=== PATIENT | female | born 1960 | race Hispanic/Latino ===

== ENCOUNTER 2018-01-05 10:49 | Emergency (ER) | payer OTHER ==
[2018-01-05 11:09] VITALS: RESP 18; TEMP 98
[2018-01-05] MEDS ORDERED: Acetaminophen-Codeine 300/30 mg Tab PO STA (11:36)
[2018-01-05] MEDS ORDERED: Amoxicillin-Clav 875-125 mg Tab PO STA (11:36)
[2018-01-05] MEDS ORDERED: Acetaminophen-Codeine 300/30 mg Tab PO ONE (11:47)
[2018-01-05] MEDS ORDERED: Amoxicillin-Clav 875-125 mg Tab PO ONE (11:47)
--- NOTE | 2018-01-05 12:08 | C.PDOC ---
History Of Present Illness 57 year old female presents to ED with complaints of left lower toothache for few days. Patient states she has been having tooth problems for some tiem, and has couple extractions and seeing her dentist; she needs dentures. She has an appointment with oral surgeon in 4 days. Time Seen by Provider: 01/05/18 11:29 Chief Complaint (Nursing): Dental Pain History Per: Patient History/Exam Limitations: no limitations Onset/Duration Of Symptoms: Days Current Symptoms Are (Timing): Still Present Past Medical History Reviewed: Historical Data, Nursing Documentation, Vital Signs Vital Signs: Last Vital Signs Temp 98 F 01/05/18 12:17 Pulse 80 01/05/18 12:17 Resp 18 01/05/18 12:17 BP 133/59 L 01/05/18 12:17 Pulse Ox 96 01/05/18 12:17 - Medical History PMH: No Chronic Diseases, Fractures (R wrist and R forearm ORIF) - [facility] Procedures APPLICATION OF SPLINT (05/29/14) Family History: States: Unknown Family Hx - Social History Hx Tobacco Use: Yes Hx Alcohol Use: No Hx Substance Use: No - Immunization History Hx Tetanus Toxoid Vaccination: Yes Hx Influenza Vaccination: Yes Hx Pneumococcal Vaccination: Yes Review Of Systems ENT: Positive for: Other (toothache) Cardiovascular: Negative for: Chest Pain Respiratory: Negative for: Cough Gastrointestinal: Negative for: Abdominal Pain Neurological: Negative for: Headache Physical Exam - Physical Exam Appears: Non-toxic, No Acute Distress Skin: Warm, Dry Head: Atraumatic, Normacephalic Eye(s): bilateral: Normal Inspection, EOMI Ear(s): Bilateral: Normal (no erythema) Nose: Normal, No Flaring, No Discharge Oral Mucosa: Moist Tongue: Normal Appearing, No Swelling Lips: Normal Appearing, No Swelling Teeth: Caries (mulitple), Edentulous (to upper mouth), Other (few teeth to lower mouth, left cuspid with large cavity and mild gingival swelling ) Gingiva: No Erythema, No Ulceration, No Bleeding, No Abscess Throat: Normal, No Erythema, No Exudate, No Drooling Neck: Normal ROM, Supple Chest: Symmetrical Cardiovascular: Rhythm Regular, No Murmur Respiratory: Normal Breath Sounds, No Wheezing Extremity: Bilateral: Atraumatic ED Course And Treatment O2 Sat by Pulse Oximetry: 99 Medical Decision Making Medical Decision Making: Patient with multiple dental caries and toothache. No palpable dental abscess. Patient has follow up with dentist. Rx given. Disposition Counseled Patient/Family Regarding: Diagnosis, Need For Followup, Rx Given - Disposition Disposition: HOME/ ROUTINE Disposition Time: 12:07 Condition: STABLE Additional Instructions: Please follow up with dentist Take medications as prescribed Prescriptions: Acetaminophen with Codeine [Tylenol with Codeine No. 3 300 mg-30 mg] 1 tab PO Q8 PRN #15 tab PRN Reason: Pain, Moderate (4-7) Amoxicillin/Clavulanate [Augmentin 875 MG-125 MG] 1 tab PO BID #14 tab Instructions: Dental Pain (DC) Forms: [facility] (Gibraltarian) - POA Present On Arrival: None - Clinical Impression Clinical Impression: Dental caries, Tooth ache
[2018-01-05 12:31] VITALS: BP 133/59; PULSE 80
[2018-01-05 15:22] VITALS: O2SAT 99
== END 2018-01-05 12:17 | disposition home or self-care (01) ==
LOC: C.ER 10:49
DX: K02.9 Dental caries, unspecified (principal); K08.89 Other specified disorders of teeth and supporting structures; F17.210 Nicotine dependence, cigarettes, uncomplicated

== ENCOUNTER 2018-07-22 11:44 | Emergency (ER) | payer OTHER ==
[2018-07-22 11:57] VITALS: BP 130/92; PULSE 71; RESP 18; TEMP 98.4; O2SAT 96
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
--- NOTE | 2018-07-22 13:38 | RAD ---
HISTORY: cough, rhonchi, fever COMPARISON: Chest x-ray performed 09/26/11 TECHNIQUE: Chest PA and lateral FINDINGS: Examination limited by habitus. LUNGS: Patchy bilateral infiltrates/atelectasis. Please note that chest x-ray has limited sensitivity for the detection of pulmonary masses. PLEURA: No significant pleural effusion identified. No definite pneumothorax . CARDIOVASCULAR: Cardiomegaly. Ectatic aorta. Atherosclerotic calcifications of the aortic knob. OSSEOUS STRUCTURES: Osseous demineralization. Degenerative changes. Kyphosis. VISUALIZED UPPER ABDOMEN: Unremarkable. OTHER FINDINGS: None. IMPRESSION: Patchy bilateral infiltrates/atelectasis. Correlate clinically.
== END 2018-07-22 14:17 | disposition home or self-care (01) ==
LOC: C.ER 11:44
DX: J18.9 Pneumonia, unspecified organism (principal)

== ENCOUNTER 2018-08-08 11:55 | Emergency (ER) | payer OTHER ==
[2018-08-08] MEDS ORDERED: Sodium Chloride 0.9% 1,000 ML IV ONE (13:11)
[2018-08-08 13:41] LABS: BASO # 0.1 K/uL (0.0-0.2); EOS # 0.2 K/uL (0.0-0.7); LYMPH # 1.9 K/uL (1.0-4.3); MEAN CORPUSCULAR HEMOGLOBIN 30.2 pg (27.0-31.0)
--- NOTE | 2018-08-08 13:44 | C.PDOC ---
History Of Present Illness 57 y/o female, w/PMhx of pericarditis and Hepatitis C, presents to the ER complaining of cough and nasal congestion which has been present for the past several weeks. Patient states that she has pain in her chest and back. Patient reports that she was recently evaluated for similar symptoms at [facility] [place] [facility]. She was diagnosed with pneumonia and she was discharged with prescriptions for Zithromax, Prednisone, and cough syrup. Denies having fever, chills, CP, and SOB. HPI: Influenza Time Seen by Provider: 08/08/18 12:48 Chief Complaint: Cough, Cold, Congestion History Per: Patient Exam Limitations: no limitations Onset/Duration Of Symptoms: Days Symptoms include: cough, nasal congestion. denies: fever, headache Risk factors for flu complications: No: adult > 65 years Past Medical History Reviewed: Historical Data, Nursing Documentation, Vital Signs Vital Signs: Last Vital Signs Temp 98.5 F 08/08/18 11:58 Pulse 84 08/08/18 11:58 Resp 19 08/08/18 11:58 BP 134/84 08/08/18 11:58 Pulse Ox 94 L 08/08/18 11:58 - Medical History PMH: Fractures (R wrist and R forearm ORIF), Gall Bladder Disease, Pericarditis Other Surgeries: Hx of surgeries - [facility] Procedures APPLICATION OF SPLINT (05/29/14) Family History: States: No Known Family Hx - Social History Hx Tobacco Use: Yes Hx Alcohol Use: No Hx Substance Use: No - Immunization History Hx Tetanus Toxoid Vaccination: Yes Hx Influenza Vaccination: No Hx Pneumococcal Vaccination: Yes Review Of Systems Except As Marked, All Systems Reviewed And Found Negative. Constitutional: Negative for: Fever, Chills ENT: Positive for: Nose Congestion Cardiovascular: Negative for: Chest Pain Respiratory: Positive for: Cough. Negative for: Shortness of Breath Physical Exam - Physical Exam Appears: Non-toxic, No Acute Distress, Other (awake,alert, oriented x3) Skin: Normal Color, Warm, Dry Head: Atraumatic, Normacephalic Eye(s): bilateral: Other (watery eyes) Nose: Normal Oral Mucosa: Moist Neck: Supple Chest: Symmetrical Cardiovascular: Rhythm Regular Respiratory: Normal Breath Sounds, No Rales, No Rhonchi, No Wheezing Gastrointestinal/Abdominal: Normal Exam, Soft, No Tenderness, No Guarding, No Rebound Extremity: Normal ROM, Deformity (deformity to right arm), Other (no pitting edema) Neurological/Psych: Oriented x3, Normal Speech Medical Decision Making Medical Decision Making: Plan: --Labs --UA --ECG --CXR --IV Fluids --Tylenol PO --Motrin PO - Laboratory Results Result Diagrams: 08/08/18 13:28 - ECG ECG Rhythm: Positive for: Sinus Rhythm Interpretation Of ECG: NSR with no ST elevations/ depressions Rate: 65 O2 Sat by Pulse Oximetry: 94 (RA) Pulse Ox Interpretation: Normal Disposition Counseled Patient/Family Regarding: Studies Performed, Diagnosis, Need For Followup, Rx Given - Disposition Referrals: [facility] [Outside] Disposition: HOME/ ROUTINE Disposition Time: 15:47 Condition: STABLE Prescriptions: Albuterol HFA [Ventolin HFA 90 mcg/actuation (8 g)] 1 puff IH QID PRN #1 puff PRN Reason: Cough Benzonatate [Tessalon Perles] 200 mg PO TID #30 sgl Instructions: Chronic Bronchitis Forms: [facility] (Bangladeshi), General Discharge Instructions, Work Excuse - POA Present On Arrival: None - Clinical Impression Clinical Impression: Chronic bronchitis - Scribe Statement The provider has reviewed the documentation as recorded by the Sudhakaribannita Trotter Provider Attestation: All medical record entries made by the Scribe were at my direction and personally dictated by me. I have reviewed the chart and agree that the record accurately reflects my personal performance of the history, physical exam, medical decision making, and the department course for this patient. I have also personally directed, reviewed, and agree with the discharge instructions and disposition.
[2018-08-08 13:56] LABS: EOS % 2.4 % (0.0-4.0); HEMOGLOBIN 12.7 g/dL (11.0-16.0); MEAN CELL VOLUME 89.9 fL (81.0-99.0); MEAN CORPUSCULAR HGB CONC 33.6 g/dL (33.0-37.0); MEAN PLATELET VOLUME 9.1 fL (7.2-11.7); MONO # 0.8 K/uL (0.0-0.8); MONO % 9.3 % (0.0-10.0); NEUT # 5.6 K/uL (1.8-7.0); NEUT % 65.3 % (50.0-75.0); NRBC % 0.2 % (0.0-2.0); RBC 4.21 Mil/uL (3.80-5.20); RED CELL DISTRIBUTION WIDTH 14.5 % (11.5-14.5); WHITE BLOOD COUNT 8.6 K/uL (4.8-10.8)
[2018-08-08] MEDS ORDERED: Sodium Chloride 0.9% 1,000 ML ONE (15:18)
[2018-08-08 15:34] VITALS: BP 127/83; RESP 20; TEMP 97.8
--- NOTE | 2018-08-08 15:40 | RAD ---
Date of service: 08/08/2018 HISTORY: treated for pneumonia COMPARISON: 07/22/2018 and 09/26/2011 TECHNIQUE: Chest PA and lateral FINDINGS: LUNGS: Interval slight increase in the horizontal thin discoid like bibasilar atelectatic changes noted when compared with the most recent exam. No consolidation. PLEURA: No significant pleural effusion identified. No pneumothorax apparent. CARDIOVASCULAR: Mild cardiomegaly-similar. Probable minimal pulmonary venous [id number] chronicity is a consideration. Tortuosity of the thoracic aorta similar OSSEOUS STRUCTURES: No significant abnormalities. VISUALIZED UPPER ABDOMEN: Normal. OTHER FINDINGS: None. IMPRESSION: Interval bibasilar discoid like atelectasis-lung volumes low-normal. Cardiomegaly-similar. Minimal pulmonary venous congestion probably chronic. No interval consolidation or effusion noted.
[2018-08-08 15:49] VITALS: PULSE 65; O2SAT 94
--- NOTE | 2018-08-12 11:15 | CARD ---
APPROVED REPORT Date of service: 08/08/2018 EKG Measurement Heart [id number] <Conclusion> Normal sinus rhythm Normal ECG
== END 2018-08-08 16:07 | disposition home or self-care (01) ==
LOC: C.ER 11:55
DX: J42 Unspecified chronic bronchitis (principal)
CPT/HCPCS: 71046; 85025; 87804; 93005; 99283; J7030

== ENCOUNTER 2018-11-13 22:06 | Inpatient (IN) | payer OTHER ==
[2018-11-14 01:00] LABS: BASO # 0.1 K/uL (0.0-0.2); EOS # 0.3 K/uL (0.0-0.7); NRBC % 0.1 % (0.0-2.0); WHITE BLOOD COUNT 16.3 K/uL (4.8-10.8)
[2018-11-14 01:09] LABS: BASO % 0.8 % (0.0-2.0); HEMOGLOBIN 12.3 g/dL (11.0-16.0); LYMPH # 1.6 K/uL (1.0-4.3); MEAN CELL VOLUME 89.8 fL (81.0-99.0); MEAN CORPUSCULAR HEMOGLOBIN 29.8 pg (27.0-31.0); MEAN CORPUSCULAR HGB CONC 33.2 g/dL (33.0-37.0); MEAN PLATELET VOLUME 7.8 fL (7.2-11.7); MONO # 1.3 K/uL (0.0-0.8); MONO % 8.3 % (0.0-10.0); NEUT # 12.9 K/uL (1.8-7.0); NEUT % 78.9 % (50.0-75.0); RBC 4.12 Mil/uL (3.80-5.20); RED CELL DISTRIBUTION WIDTH 13.5 % (11.5-14.5)
[2018-11-14] MEDS ORDERED: Iohexol 240 (50 ml) ONE (01:11)
[2018-11-14 01:15] LABS: ALBUMIN 3.8 g/dL (3.5-5.0); BLOOD UREA NITROGEN 18 mg/dL (7-17); CALCIUM 8.5 mg/dl (8.6-10.4); GFR NON-AFRICAN AMERICAN > 60
[2018-11-14 01:24] LABS: ALT/SGPT 17 U/L (9-52); AST/SGOT 34 U/L (14-36)
--- NOTE | 2018-11-14 01:53 | C.PDOC ---
History Of Present Illness 58 year old female presents to the ER with a complaint of a painful mass to the left abdomen for the past few days. Patient states it started as a small itchy pimple that she scraped with a hairbrush and has now gotten progressively red and swollen. Denies fever or discharge. Time Seen by Provider: 11/14/18 00:11 Chief Complaint (Nursing): Abnormal Skin Integrity History Per: Patient History/Exam Limitations: no limitations Onset/Duration Of Symptoms: Days Current Symptoms Are (Timing): Still Present Location Of Injury: Left: Abdomen Quality Of Symptoms: Swollen Recent travel outside of the [place]: No Past Medical History Reviewed: Historical Data, Nursing Documentation, Vital Signs Vital Signs: Last Vital Signs Temp 98.5 F 11/13/18 22:22 Pulse 99 H 11/13/18 22:22 Resp 22 11/13/18 22:22 BP 119/77 11/13/18 22:22 Pulse Ox 99 11/13/18 22:22 - Medical History PMH: Fractures (R wrist and R forearm ORIF), Gall Bladder Disease, Pericarditis - [facility] Procedures APPLICATION OF SPLINT (05/29/14) Family History: States: Unknown Family Hx - Social History Hx Tobacco Use: Yes Hx Alcohol Use: No Hx Substance Use: No - Immunization History Hx Tetanus Toxoid Vaccination: Yes Hx Influenza Vaccination: No Hx Pneumococcal Vaccination: Yes Review Of Systems Constitutional: Negative for: Fever, Chills Skin: Positive for: Other (Swollen red mass on abdomen) Physical Exam - Physical Exam Appears: Non-toxic Skin: Warm, Dry Head: Atraumatic, Normacephalic Eye(s): bilateral: Normal Inspection Cardiovascular: Rhythm Regular Respiratory: Normal Breath Sounds, No Rales, No Rhonchi, No Wheezing Gastrointestinal/Abdominal: No Guarding, No Rebound, Other (Large area of erythema and induration to left upper to mid abdomen with minimal tenderness, no drainage or fluctuance.) Back: No CVA Tenderness Neurological/Psych: Oriented x3, Normal Speech ED Course And Treatment - Laboratory Results Result Diagrams: 11/17/18 07:34 11/17/18 06:35 Lab Results: Total Bilirubin 0.6 mg/dL (0.2-1.3) 11/14/18 00:56 AST 34 U/L (14-36) 11/14/18 00:56 ALT 17 U/L (9-52) 11/14/18 00:56 Alkaline Phosphatase 87 U/L (38-126) 11/14/18 00:56 Total Protein 7.9 g/dL (6.3-8.3) 11/14/18 00:56 Albumin 3.8 g/dL (3.5-5.0) 11/14/18 00:56 Globulin 4.0 gm/dL (2.2-3.9) H 11/14/18 00:56 Albumin/Globulin Ratio 1.0 (1.0-2.1) 11/14/18 00:56 O2 Sat by Pulse Oximetry: 99 (Room air) Pulse Ox Interpretation: Normal - CT Scan/US CT abd/pel Other Rad Studies (CT/US): Read By Radiologist, Radiology Report Reviewed CT/US Interpretation: CT SCAN OF THE ABDOMEN AND PELVIS WITH CONTRAST. CLINICAL HISTORY: Left lateral abdominal wall abscess. TECHNIQUE: Multiple axial and coronal CT images were obtained through the abdomen and pelvis after administration of intravenous contrast material. Patient ingested oral contrast. COMMENTS: Mild cardiomegaly. Bilateral basilar atelectatic pulmonary changes. Small sliding hiatal hernia. Diffuse soft tissue edema and inflammatory fat stranding. 8.9x4.2 cm subcutaneous phlegmon formation of the left lateral anterior abdominal wall. Mild amount of fecal residue is noted in the large bowel. The liver is of uniform attenuation without mass or defect. There is no intra or extrahepatic biliary ductal dilatation. The spleen is normal. The gallbladder contains a gallstone. The pancreas is of normal contour and attenuation characteristics. There is no evidence of adrenal mass. The kidneys are normal in size, shape and configuration. There is no evidence of renal or ureteral mass. No renal or ureteral calculi are identified. There is no hydrou reter or hydronephrosis. No evidence for appendicitis. There is no bowel wall thickening. No evidence for small or large bowel obstruction. There is no evidence of abdominal ascites or lymphadenopathy. Fat containing umbilical hernia without incarceration. There is no evidence of intrinsic or extrinsic bladder mass. There is no pelvic ascites or lymphadenopathy. Images of the lung bases show no evidence of pleural or parenchymal mass. There are no pleural effusions. The bony structures are free of lytic or blastic lesions. IMPRESSION: Mild cardiomegaly. Bilateral basilar atelectatic pulmonary changes. Small sliding hiatal hernia. Diffuse soft tissue edema and inflammatory fat stranding. Cellulitis. 8.9x4.2 cm subcutaneous phlegmon formation of the left lateral anterior abdominal wall. Mild amount of fecal residue is noted in the large bowel. Cholelithiasis. Progress Note: Blood work ordered. Patient states she is allergic to IV dye but able to take PO dye, will attempt CT abd/pel to determine extend of abscess. Case d/w Dr Anna for observation admission- and accepted pt to her service and IV abx were initiated. resident services manager called to evaluate the pt in ED Disposition - Disposition Disposition: HOSPITALIZED Disposition Time: 03:00 Condition: STABLE - Clinical Impression Clinical Impression: Abdominal wall cellulitis - PA / RAIL OPERATIONS CONTROLLER / Resident Statement MD/DO has reviewed & agrees with the documentation as recorded. - Scribe Statement The provider has reviewed the documentation as recorded by the Scribannita Covarrubias All medical record entries made by the Scribannita were at my direction and personally dictated by me. I have reviewed the chart and agree that the record accurately reflects my personal performance of the history, physical exam, medical decision making, and the department course for this patient. I have also personally directed, reviewed, and agree with the discharge instructions and disposition.
[2018-11-14] MEDS ORDERED: Clindamycin 600mg/50ml NS 600 MG/50 ML BAG IVPB ONE (02:12)
[2018-11-14] MEDS ORDERED: Clindamycin 600mg/50ml D5W 600 MG/50 ML VIAL IVPB SCH (02:15)
[2018-11-14] MEDS ORDERED: Clindamycin 300 MG in Sodium Chloride 0.9% 50 ML IVPB SCH (02:15)
[2018-11-14] MEDS ORDERED: Piperacillin/Tazobact 3.375 GM in Sodium Chloride 100 ML IVPB STA (04:51)
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
[2018-11-14] MEDS ORDERED: Piperacillin/Tazobact 3.375 gm 0 ML IVPB ONE (05:09)
[2018-11-14] MEDS ORDERED: Vancomycin 1 GM 1 GM/250 ML BAG IVPB ONE (05:09)
--- NOTE | 2018-11-14 08:06 | CT ---
CT abdomen and pelvis HISTORY: Left abdominal wall abscess. Comparison none available. TECHNIQUE: Multiple contiguous axial images were performed through the abdomen and pelvis without the use of intravenous contrast. Subsequently, sagittal coronal reformatted images were obtained. Findings: Diffuse reticulation and edema seen within the subcutaneous soft tissues of the abdomen and pelvis bilaterally suggestive for diffuse anasarca and or cellulitis. Right of midline fat containing abdominal wall hernia measuring 5.3 x 5.0 centimeters best seen on series 3, image 110 with mouth of the hernia measuring up to 2.2 centimeters. Within the left anterior abdominal wall subcutaneous soft tissues extending from the level of the mid abdomen to the pelvis, there is a confluent heterogeneous collection measuring 12.0 x 3.4 x 9.8 centimeters which demonstrates a Hounsfield unit attenuation of 31 concerning for a phlegmon collection and or developing abscess collection. Clinical correlation. Scattered areas of patchy consolidation and/or atelectasis at the lung bases. No pleural or pericardial effusion. Mild cardiomegaly. Small sliding hiatal hernia. Prominent liver. Cholelithiasis with prominent gallbladder calculus measuring up to 2.5 centimeters. Spleen is preserved. Adrenal glands are preserved. Fatty atrophy of the pancreas. Upper abdominal bowel is grossly preserved. Right kidney: No calculi or hydronephrosis. Left Kidney: 8 millimeter upper pole exophytic rounded density, too small to adequately characterize. No calculi or hydronephrosis. Mildly distended urinary bladder. Uterus appears grossly preserved. Fecal retention in the colon. Appendix appears partially imaged on series 3, image 90, grossly preserved. Few atherosclerotic calcification and plaque within the aorta. Few shotty para-aortic and mesenteric lymph nodes. Few shotty inguinal lymph nodes. Degenerative changes in the spine and hips. Mild anterolisthesis of L5 on S1. Mild anterolisthesis of L4 on L5. Mild superior endplate compression deformity of the T12 vertebral body. Impression: 1. Within the left anterior abdominal wall subcutaneous soft tissues extending from the level of the mid abdomen to the pelvis, there is a confluent heterogeneous collection measuring 12.0 x 3.4 x 9.8 centimeters which demonstrates a Hounsfield unit attenuation of 31 concerning for a phlegmon collection and or developing abscess collection. Clinical correlation. 2. Diffuse reticulation and edema seen within the subcutaneous soft tissues of the abdomen and pelvis bilaterally suggestive for diffuse anasarca and or cellulitis. 3. Right of midline fat containing abdominal wall hernia measuring 5.3 x 5.0 centimeters best seen on series 3, image 110 with mouth of the hernia measuring up to 2.2 centimeters. 4. Scattered areas of patchy consolidation and/or atelectasis at the lung bases. 5. Prominent liver. 6. Cholelithiasis with prominent gallbladder calculus measuring up to 2.5 centimeters. 7. 8 millimeter upper pole exophytic rounded density in the left kidney, too small to adequately characterize. No calculi or hydronephrosis. 8. Mild anterolisthesis of L5 on S1. Mild anterolisthesis of L4 on L5. Mild superior endplate compression deformity of the T12 vertebral body. Additional findings as above. A preliminary report was generated at 3:27 a.m. on 11/14/[address] Taina Wne from [employer].
[2018-11-14] MEDS ORDERED: Albuterol HFA 90 mcg/actuation (8 g) IH PRN (14:38)
[2018-11-14] MEDS ORDERED: Piperacillin/Tazobact 3.375 gm 100 ML IVPB ONE (15:42)
[2018-11-14] MEDS: Piperacill/Tazo 3.375gm in Dex 3.375 GM/50 ML BAG IVPB SCH (15:51)
[2018-11-14] MEDS ORDERED: Clindamycin 600mg/50ml D5W 600 MG/50 ML VIAL IVPB STA (17:34)
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
--- NOTE | 2018-11-14 20:14 | CP.PCM.HP ---
History of Present Illness - History of Present Illness History of Present Illness: pt came in for abcses abdominal wall Present on Admission - Present on Admission Any Indicators Present on Admission: No Review of Systems - Review of Systems Systems not reviewed;Unavailable: Acuity of Condition - Constitutional Constitutional: As Per HPI - EENT Eyes: As Per HPI Ears: As Per HPI Nose/Mouth/Throat: As Per HPI - Breasts Breasts: As Per HPI - Cardiovascular Cardiovascular: As Per HPI - Respiratory Respiratory: As Per HPI - Gastrointestinal Gastrointestinal: As Per HPI - Genitourinary Genitourinary: As Per HPI - Reproductive: Female Reproductive:Female: As Per HPI - Menstruation Menstruation: As Per HPI - Integumentary Integumentary: As Per HPI - Neurological Neurological: As Per HPI - Endocrine Endocrine: As Per HPI - Hematologic/Lymphatic Hematologic: As Per HPI Past Patient History - Infectious Disease Hx of Infectious Diseases: None - Past Medical History & Family History Past Medical History?: Yes - Past Social History Smoking Status: Current Some Days Smoker - CARDIAC Other/Comment: "heart valve leakage" - HEMATOLOGICAL/ONCOLOGICAL Hx Hepatitis C: Yes - MUSCULOSKELETAL/RHEUMATOLOGICAL Hx Fractures: Yes (R wrist and R forearm ORIF) - GASTROINTESTINAL Hx Gall Bladder Disease: Yes - PSYCHIATRIC Hx Substance Use: No - SURGICAL HISTORY Hx Surgeries: Yes Hx Orthopedic Surgery: Yes - ANESTHESIA Hx Anesthesia: Yes Hx Anesthesia Reactions: No Hx Malignant Hyperthermia: No Meds Allergies/Adverse Reactions: Allergies Allergy/AdvReac Type Severity Reaction Status Date / Time IV DYE Allergy Uncoded 11/14/18 01:22 Results - Vital Signs Recent Vital Signs: Last Vital Signs Temp 98.6 F 11/14/18 19:24 Pulse 86 11/14/18 19:24 Resp 20 11/14/18 19:24 BP 100/63 11/14/18 19:24 Pulse Ox 95 11/14/18 19:24 - Labs Result Diagrams: 11/14/18 00:56 11/14/18 00:56 Labs: Laboratory Results - last 24 hr 11/14/18 11/14/18 00:56 00:56 WBC 16.3 H D RBC 4.12 Hgb 12.3 Hct 37.0 MCV 89.8 MCH 29.8 MCHC 33.2 RDW 13.5 Plt Count 290 MPV 7.8 Neut % (Auto) 78.9 H Lymph % (Auto) 10.0 L [place] % (Auto) 8.3 Eos % (Auto) 2.0 Baso % (Auto) 0.8 Neut # (Auto) 12.9 H Lymph # (Auto) 1.6 [place] # (Auto) 1.3 H Eos # (Auto) 0.3 Baso # (Auto) 0.1 Sodium 132 Potassium 5.3 H Chloride 101 Carbon Dioxide 25 Anion Gap 11 BUN 18 H Creatinine 0.6 L Est GFR ( Amer) > 60 Est GFR (Non-Af Amer) > 60 Random Glucose 98 Calcium 8.5 L Total Bilirubin 0.6 AST 34 ALT 17 Alkaline Phosphatase 87 Total Protein 7.9 Albumin 3.8 Globulin 4.0 H Albumin/Globulin Ratio 1.0 Assessment & Plan - Assessment and Plan (Free Text) Assessment: ac abdominal wall abcess Plan: cont as per surgical consult - Date & Time Date: 11/14/18 Time: 20:14
[2018-11-14] MEDS: Enoxaparin 40 mg Syringe SC SCH (21:59)
[2018-11-15] MEDS: Piperacill/Tazo 3.375gm in Dex 3.375 GM/50 ML BAG IVPB SCH ×4 (00:35→23:58)
--- NOTE | 2018-11-15 08:26 | CP.PCM.PN ---
Subjective - Date & Time of Evaluation Date of Evaluation: 11/15/18 Time of Evaluation: 08:23 - Subjective Subjective: General Surgery Progress Note for Dr. Smallwood 58F seen and evaluated at bedside this morning. No acute events overnight. No complaints this morning. States she is feeling better and pain is controlled. No drainage noted from abdominal wound. Denies f/c, n/v/d, SOB, CP, palpitations, or urinary symptoms. Objective - Vital Signs/Intake and Output Vital Signs (last 24 hours): Temp Pulse Resp BP Pulse Ox 97.6 F 65 20 98/64 L 95 11/15/18 07:40 11/15/18 07:40 11/15/18 07:40 11/15/18 07:40 11/15/18 07:40 Intake and Output: 11/15/18 11/15/18 06:59 18:59 Intake Total 590 Balance 590 - Medications Medications: Current Medications Acetaminophen (Tylenol 325mg Tab) 650 mg PO Q6 PRN PRN Reason: Fever >100.4 F Last Admin: 11/15/18 02:00 Dose: 650 mg Albuterol (Ventolin Hfa 90 Mcg/Actuation (8 G)) 1 puff IH QID PRN PRN Reason: Cough Enoxaparin Sodium (Lovenox) 40 mg SC DAILY [facility]HID Last Admin: 11/14/18 21:59 Dose: 40 mg Piperacillin Sod/Tazobactam Sod (Zosyn 3.375 Gm Iv Premix) 3.375 gm in 50 mls @ 100 mls/hr IVPB Q8H [facility]; Protocol Last Admin: 11/15/18 00:35 Dose: 100 mls/hr Vancomycin HCl 1 gm/ Sodium (Chloride) 250 mls @ 166.7 mls/hr IVPB Q24H [facility]; Protocol Last Admin: 11/15/18 05:41 Dose: 166.7 mls/hr Influenza Virus Vaccine (Flucelvax Quad [id number] Syr) 60 mcg IM .ONCE ONE Stop: 11/15/18 10:01 - Labs Labs: 11/14/18 00:56 11/14/18 00:56 - Constitutional Appears: Well, Non-toxic, No Acute Distress - Head Exam Head Exam: ATRAUMATIC, NORMAL INSPECTION, NORMOCEPHALIC - Eye Exam Eye Exam: EOMI - ENT Exam ENT Exam: Mucous Membranes Moist - Respiratory Exam Respiratory Exam: NORMAL BREATHING PATTERN. absent: Respiratory Distress - Cardiovascular Exam Cardiovascular Exam: REGULAR RHYTHM. absent: Tachycardia - GI/Abdominal Exam GI & Abdominal Exam: Soft, Normal Bowel Sounds. absent: Tenderness - Neurological Exam Neurological Exam: Alert, Awake - Psychiatric Exam Psychiatric exam: Normal Affect, Normal Mood - Skin Additional comments: warm, erythematous, indurated, with skin excoriation over abdominal wall no active drainage however new fluctuance noted Assessment and Plan - Assessment and Plan (Free Text) Assessment: 58F w/ left lower abdominal wall cellulitis and possible abscess CT scan showed inflammation and phlegmon but no defined fluid collection Plan: Will I&D today Analgesics PRN Warm compresses TID Continue IV Abx D/w Dr. Louis Leonardo PGY1
[2018-11-15] MEDS: Enoxaparin 40 mg Syringe SC SCH (09:14)
[2018-11-15] MEDS ORDERED: Influenza Vaccine 60 mcg/0.5 mL SYR (4YR UP) IM ONE (10:00)
--- NOTE | 2018-11-15 10:47 | CP.PCM.PN ---
Subjective - Date & Time of Evaluation Date of Evaluation: 11/15/18 Time of Evaluation: 10:45 - Subjective Subjective: still has abdominal wall abcess will go to or today Objective - Vital Signs/Intake and Output Vital Signs (last 24 hours): Temp Pulse Resp BP Pulse Ox 97.6 F 65 20 98/64 L 95 11/15/18 07:40 11/15/18 07:40 11/15/18 07:40 11/15/18 07:40 11/15/18 07:40 Intake and Output: 11/15/18 11/15/18 06:59 18:59 Intake Total 590 Balance 590 - Medications Medications: Current Medications Acetaminophen (Tylenol 325mg Tab) 650 mg PO Q6 PRN PRN Reason: Fever >100.4 F Last Admin: 11/15/18 02:00 Dose: 650 mg Albuterol (Ventolin Hfa 90 Mcg/Actuation (8 G)) 1 puff IH QID PRN PRN Reason: Cough Enoxaparin Sodium (Lovenox) 40 mg SC DAILY [facility] Last Admin: 11/15/18 09:14 Dose: Not Given Piperacillin Sod/Tazobactam Sod (Zosyn 3.375 Gm Iv Premix) 3.375 gm in 50 mls @ 100 mls/hr IVPB Q8H NAHID; Protocol Last Admin: 11/15/18 09:14 Dose: Not Given Vancomycin HCl 1 gm/ Sodium (Chloride) 250 mls @ 166.7 mls/hr IVPB Q24H NAHID; Protocol Last Admin: 11/15/18 05:41 Dose: 166.7 mls/hr - Labs Labs: 11/14/18 00:56 11/14/18 00:56 - Constitutional Appears: Non-toxic - Head Exam Head Exam: NORMAL INSPECTION - Eye Exam Eye Exam: Normal appearance Pupil Exam: NORMAL ACCOMODATION - ENT Exam ENT Exam: Normal Exam - Neck Exam Neck Exam: Full ROM - Respiratory Exam Respiratory Exam: Clear to Ausculation Bilateral - Cardiovascular Exam Cardiovascular Exam: REGULAR RHYTHM - GI/Abdominal Exam GI & Abdominal Exam: Normal Bowel Sounds Additional comments: abd wall abcess - Exam Exam: NORMAL INSPECTION - Extremities Exam Extremities Exam: Normal Capillary Refill - Back Exam Back Exam: NORMAL INSPECTION - Neurological Exam Neurological Exam: Alert, Awake, Normal Gait, Oriented x3 - Psychiatric Exam Psychiatric exam: Normal Mood - Skin Skin Exam: Normal Color Assessment and Plan - Assessment and Plan (Free Text) Assessment: abdominal wall abcses Plan: surgery today
[2018-11-15] MEDS ORDERED: HYDROmorphone 0.5 mg/0.5 ml ISec ONE (10:57)
[2018-11-15] MEDS ORDERED: HYDROmorphone 0.5 mg/0.5 ml ISec IVP ONE (11:15)
--- NOTE | 2018-11-15 13:25 | PCM.PROC ---
- Incision & Drainage Of Abscess Anesthesia: Lidocaine 1% Prep Used: Betadine Procedure: Incised W/Scalpel Blade#: (11), Drained Pus (300cc), Irrigated Cavity W/Saline (50cc), Probed To Break Up Loculations, Packed W/Gauze (1inch iodoform), Cultures Obtained And Sent To Lab Incision and Drainage - Time Time Performed: 11:30 - Time Out Time Out: Side verified, Site verified, Patient ID confirmed, Sterile procedures obs. - Consent obtained Consent obtained: Written - Performed by Performed by: Mid-level Provider - Indications Indications: Cutaneous abscess - Contraindications Contraindications: None - Location Location: Left (abdominal wall) - Dimensions Dimensions Length cm: 7 Dimensions width cm: 7 - Anesthetic Technique Anesthetic Technique: Local, Intravenous pain meds - Anesthetic Anesthetic: Lidocaine 1% - Procedure Procedure: Usual prep and drape, Overlying area fluctuance, # scalpel used (11), Explored for loculations, Irrigated, Packed with sterile gauze - Drained Drained: ml pus (300) - Post-procedure Post procedure: Dressed - Complications Complications: None - Patient tolerated procedure Patient tolerated procedure: Well
[2018-11-15 14:08] LABS: BASO % 0.3 % (0.0-2.0); EOS # 0.2 K/uL (0.0-0.7); EOS % 1.6 % (0.0-4.0); LYMPH # 0.9 K/uL (1.0-4.3); LYMPH % 6.7 % (20.0-40.0); MEAN CELL VOLUME 89.8 fL (81.0-99.0); MEAN CORPUSCULAR HEMOGLOBIN 29.6 pg (27.0-31.0); MEAN PLATELET VOLUME 7.7 fL (7.2-11.7); MONO % 7.2 % (0.0-10.0); NEUT # 11.1 K/uL (1.8-7.0); NEUT % 84.2 % (50.0-75.0); PLATELET COUNT 290 K/uL (130-400); RBC 4.07 Mil/uL (3.80-5.20); RED CELL DISTRIBUTION WIDTH 13.9 % (11.5-14.5); WHITE BLOOD COUNT 13.2 K/uL (4.8-10.8)
[2018-11-15 14:26] LABS: ALBUMIN 3.6 g/dL (3.5-5.0); ALT/SGPT 21 U/L (9-52); AST/SGOT 21 U/L (14-36); BLOOD UREA NITROGEN 14 mg/dL (7-17); CALCIUM 8.5 mg/dl (8.6-10.4); GFR NON-AFRICAN AMERICAN > 60
[2018-11-15 14:49] LABS: EOSINOPHIL 1 % (0-4); LYMPHOCYTE 11 % (20-40); MONOCYTE 10 % (0-10); NEUTROPHIL 78 % (50-75); PLATELET ESTIMATE NORMAL (NORMAL); TOTAL CELLS COUNTED 100
[2018-11-15 14:54] LABS: INR 1.2; PROTHROMBIN TIME 13.2 SECONDS (9.7-12.2)
--- NOTE | 2018-11-15 19:44 | CP.PCM.PN ---
Subjective - Date & Time of Evaluation Date of Evaluation: 11/15/18 Time of Evaluation: 07:00 - Subjective Subjective: s/p I and D tolerated well IV rx in progress Objective - Vital Signs/Intake and Output Vital Signs (last 24 hours): Temp Pulse Resp BP Pulse Ox 98.2 F 80 20 106/69 93 L 11/15/18 16:00 11/15/18 16:00 11/15/18 16:00 11/15/18 16:00 11/15/18 16:00 Intake and Output: 11/15/18 11/16/18 18:59 06:59 Intake Total 590 Balance 590 - Medications Medications: Current Medications Acetaminophen (Tylenol 325mg Tab) 650 mg PO Q6 PRN PRN Reason: Fever >100.4 F Last Admin: 11/15/18 02:00 Dose: 650 mg Albuterol (Ventolin Hfa 90 Mcg/Actuation (8 G)) 1 puff IH QID PRN PRN Reason: Cough Enoxaparin Sodium (Lovenox) 40 mg SC DAILY [facility] Last Admin: 11/15/18 09:14 Dose: Not Given Piperacillin Sod/Tazobactam Sod (Zosyn 3.375 Gm Iv Premix) 3.375 gm in 50 mls @ 100 mls/hr IVPB Q8H NAHID; Protocol Last Admin: 11/15/18 17:11 Dose: 100 mls/hr Vancomycin HCl 1 gm/ Sodium (Chloride) 250 mls @ 166.7 mls/hr IVPB Q24H NAHID; Protocol Last Admin: 11/15/18 05:41 Dose: 166.7 mls/hr - Labs Labs: 11/15/18 14:00 11/15/18 14:00 PT 13.2 SECONDS (9.7-12.2) H 11/15/18 14:00 INR 1.2 11/15/18 14:00 APTT 30 SECONDS (21-34) 11/15/18 14:00 - Constitutional Appears: Non-toxic, Chronically Ill - Head Exam Head Exam: NORMOCEPHALIC - Eye Exam Eye Exam: absent: Scleral icterus - ENT Exam ENT Exam: Mucous Membranes Dry - Neck Exam Neck Exam: absent: Lymphadenopathy - Respiratory Exam Respiratory Exam: Decreased Breath Sounds - Cardiovascular Exam Cardiovascular Exam: REGULAR RHYTHM - GI/Abdominal Exam GI & Abdominal Exam: Distended, Soft - Rectal Exam Rectal Exam: Deferred - Exam Exam: NORMAL INSPECTION - Extremities Exam Extremities Exam: absent: Pedal Edema - Back Exam Back Exam: absent: CVA tenderness (L), CVA tenderness (R) Assessment and Plan (1) Cellulitis, abdominal wall Status: Acute (2) Abscess, abdomen Status: Acute
[2018-11-15] MEDS: Vancomycin 1 gm/NS 200 ml 1 GM/200 ML BAG IVPB SCH (20:53)
[2018-11-16] MEDS: Piperacill/Tazo 3.375gm in Dex 3.375 GM/50 ML BAG IVPB SCH ×2 (08:18→15:23)
[2018-11-16] MEDS: Oxycodone/Acetaminophen 5/325 mg Tab PO PRN ×2 (08:38→15:31)
[2018-11-16] MEDS: Enoxaparin 40 mg Syringe SC SCH (10:20)
[2018-11-16] MEDS: Vancomycin 1 gm/NS 200 ml 1 GM/200 ML BAG IVPB SCH ×2 (11:12→20:30)
--- NOTE | 2018-11-16 11:43 | CP.PCM.PN ---
Subjective - Date & Time of Evaluation Date of Evaluation: 11/16/18 Time of Evaluation: 11:40 - Subjective Subjective: pt still has alot of abd pain still swallen abcess drained localy in bed incoplete need to go to or under anathesi for further cleanng spoke to dr mabel ford will see pt Objective - Vital Signs/Intake and Output Vital Signs (last 24 hours): Temp Pulse Resp BP Pulse Ox 98.1 F 91 H 20 116/78 97 11/16/18 08:50 11/16/18 08:50 11/16/18 08:50 11/16/18 08:50 11/16/18 08:50 Intake and Output: 11/16/18 11/16/18 06:59 18:59 Intake Total 700 Output Total 500 Balance 200 - Medications Medications: Current Medications Acetaminophen (Tylenol 325mg Tab) 650 mg PO Q6 PRN PRN Reason: Fever >100.4 F Last Admin: 11/15/18 02:00 Dose: 650 mg Albuterol (Ventolin Hfa 90 Mcg/Actuation (8 G)) 1 puff IH QID PRN PRN Reason: Cough Enoxaparin Sodium (Lovenox) 40 mg SC DAILY NAHID Last Admin: 11/16/18 10:20 Dose: Not Given Piperacillin Sod/Tazobactam Sod (Zosyn 3.375 Gm Iv Premix) 3.375 gm in 50 mls @ 100 mls/hr IVPB Q8H NAHID; Protocol Last Admin: 11/16/18 08:18 Dose: 100 mls/hr Vancomycin/Sodium Chloride (Vancomycin 1 Gm/Ns 200 Ml) 1 gm in 200 mls @ 166.6 mls/hr IVPB Q12H NAHID; Protocol Stop: 11/20/18 20:31 Last Admin: 11/16/18 11:12 Dose: 166.6 mls/hr Oxycodone/Acetaminophen (Percocet 5/325 Mg Tab) 1 tab PO Q6H PRN PRN Reason: Pain, severe (8-10) Stop: 11/19/18 08:30 Last Admin: 11/16/18 08:38 Dose: 1 tab - Labs Labs: 11/15/18 14:00 11/15/18 14:00 PT 13.2 SECONDS (9.7-12.2) H 11/15/18 14:00 INR 1.2 11/15/18 14:00 APTT 30 SECONDS (21-34) 11/15/18 14:00 - Constitutional Appears: In Acute Distress - Head Exam Head Exam: ATRAUMATIC - Eye Exam Eye Exam: Normal appearance Pupil Exam: NORMAL ACCOMODATION - ENT Exam ENT Exam: Normal Exam - Neck Exam Neck Exam: Full ROM - Respiratory Exam Respiratory Exam: Clear to Ausculation Bilateral - Cardiovascular Exam Cardiovascular Exam: REGULAR RHYTHM - GI/Abdominal Exam GI & Abdominal Exam: Tenderness, Normal Bowel Sounds Additional comments: still swlen abd wall abcess - Extremities Exam Extremities Exam: Normal Inspection - Back Exam Back Exam: NORMAL INSPECTION - Neurological Exam Neurological Exam: Alert, Oriented x3 - Psychiatric Exam Psychiatric exam: Normal Affect - Skin Skin Exam: Normal Color Assessment and Plan - Assessment and Plan (Free Text) Assessment: abdominal wound abcess s/p iand d incomplete Plan: as per dr edward will seept need to go to or
--- NOTE | 2018-11-16 13:02 | CP.PCM.PN ---
Subjective - Date & Time of Evaluation Date of Evaluation: 11/16/18 Time of Evaluation: 12:58 - Subjective Subjective: Dressings removed. packing removed and a large amount of sanguinopurulent collection was evacuated. cavity irrigated ith saline and a smaller piece of iodoform gauze was inserted to prevent wound from closing and promoting further drainage. if this is inadequate ill need to enlarge incision and clean cavity better, will recheck in AM and evaluate for any further tx. Objective - Vital Signs/Intake and Output Vital Signs (last 24 hours): Temp Pulse Resp BP Pulse Ox 98.1 F 91 H 20 116/78 97 11/16/18 08:50 11/16/18 08:50 11/16/18 08:50 11/16/18 08:50 11/16/18 08:50 Intake and Output: 11/16/18 11/16/18 06:59 18:59 Intake Total 700 Output Total 500 Balance 200 - Medications Medications: Current Medications Acetaminophen (Tylenol 325mg Tab) 650 mg PO Q6 PRN PRN Reason: Fever >100.4 F Last Admin: 11/15/18 02:00 Dose: 650 mg Albuterol (Ventolin Hfa 90 Mcg/Actuation (8 G)) 1 puff IH QID PRN PRN Reason: Cough Enoxaparin Sodium (Lovenox) 40 mg SC DAILY NAHID Last Admin: 11/16/18 10:20 Dose: Not Given Piperacillin Sod/Tazobactam Sod (Zosyn 3.375 Gm Iv Premix) 3.375 gm in 50 mls @ 100 mls/hr IVPB Q8H NAHID; Protocol Last Admin: 11/16/18 08:18 Dose: 100 mls/hr Vancomycin/Sodium Chloride (Vancomycin 1 Gm/Ns 200 Ml) 1 gm in 200 mls @ 166.6 mls/hr IVPB Q12H NAHID; Protocol Stop: 11/20/18 20:31 Last Admin: 11/16/18 11:12 Dose: 166.6 mls/hr Oxycodone/Acetaminophen (Percocet 5/325 Mg Tab) 1 tab PO Q6H PRN PRN Reason: Pain, severe (8-10) Stop: 11/19/18 08:30 Last Admin: 11/16/18 08:38 Dose: 1 tab - Labs Labs: 11/15/18 14:00 11/15/18 14:00 PT 13.2 SECONDS (9.7-12.2) H 11/15/18 14:00 INR 1.2 11/15/18 14:00 APTT 30 SECONDS (21-34) 11/15/18 14:00
[2018-11-17] MEDS: Piperacillin/Tazobact 3.375 GM in Sodium Chloride 0.9% 100 ML IVPB SCH ×2 (00:40→08:19)
[2018-11-17] MEDS: Oxycodone/Acetaminophen 5/325 mg Tab PO PRN ×3 (00:43→19:27)
[2018-11-17 07:27] LABS: BASO # 0.1 K/uL (0.0-0.2); BASO % 0.9 % (0.0-2.0); EOS # 0.3 K/uL (0.0-0.7); EOS % 3.5 % (0.0-4.0); HEMOGLOBIN 11.6 g/dL (11.0-16.0); LYMPH # 1.1 K/uL (1.0-4.3); LYMPH % 14.8 % (20.0-40.0); MEAN CELL VOLUME 89.2 fL (81.0-99.0); MEAN CORPUSCULAR HEMOGLOBIN 29.3 pg (27.0-31.0); MEAN CORPUSCULAR HGB CONC 32.8 g/dL (33.0-37.0); MEAN PLATELET VOLUME 7.7 fL (7.2-11.7); MONO # 0.6 K/uL (0.0-0.8); MONO % 8.2 % (0.0-10.0); NEUT # 5.4 K/uL (1.8-7.0); NEUT % 72.6 % (50.0-75.0); RBC 3.97 Mil/uL (3.80-5.20); RED CELL DISTRIBUTION WIDTH 13.6 % (11.5-14.5); WHITE BLOOD COUNT 7.5 K/uL (4.8-10.8)
[2018-11-17 07:53] LABS: BLOOD UREA NITROGEN 14 mg/dL (7-17); CALCIUM 8.5 mg/dl (8.6-10.4); GFR NON-AFRICAN AMERICAN > 60
[2018-11-17] MEDS: Vancomycin 1 gm/NS 200 ml 1 GM/200 ML BAG IVPB SCH (09:45)
[2018-11-17] MEDS: Enoxaparin 40 mg Syringe SC SCH (09:45)
--- NOTE | 2018-11-17 10:28 | CP.PCM.PN ---
Subjective - Date & Time of Evaluation Date of Evaluation: 11/17/18 Time of Evaluation: 10:26 - Subjective Subjective: for or today to complete cleaning of abd abcess Objective - Vital Signs/Intake and Output Vital Signs (last 24 hours): Temp Pulse Resp BP Pulse Ox 97.4 F L 73 20 105/68 96 11/17/18 08:31 11/17/18 08:31 11/17/18 08:31 11/17/18 08:31 11/17/18 08:31 Intake and Output: 11/17/18 11/17/18 06:59 18:59 Intake Total 650 Balance 650 - Medications Medications: Current Medications Acetaminophen (Tylenol 325mg Tab) 650 mg PO Q6 PRN PRN Reason: Fever >100.4 F Last Admin: 11/15/18 02:00 Dose: 650 mg Albuterol (Ventolin Hfa 90 Mcg/Actuation (8 G)) 1 puff IH QID PRN PRN Reason: Cough Enoxaparin Sodium (Lovenox) 40 mg SC DAILY [facility] Last Admin: 11/17/18 09:45 Dose: Not Given Vancomycin/Sodium Chloride (Vancomycin 1 Gm/Ns 200 Ml) 1 gm in 200 mls @ 166.6 mls/hr IVPB Q12H NAHID; Protocol Stop: 11/20/18 20:31 Last Admin: 11/17/18 09:45 Dose: 166.6 mls/hr Piperacillin Sod/Tazobactam (Sod 3.375 gm/ Sodium Chloride) 100 mls @ 100 mls/hr IVPB Q8H NAHID; Protocol Last Admin: 11/17/18 08:19 Dose: 100 mls/hr Oxycodone/Acetaminophen (Percocet 5/325 Mg Tab) 1 tab PO Q6H PRN PRN Reason: Pain, severe (8-10) Stop: 11/19/18 08:30 Last Admin: 11/17/18 00:43 Dose: 1 tab - Labs Labs: 11/17/18 07:34 11/17/18 06:35 PT 13.2 SECONDS (9.7-12.2) H 11/15/18 14:00 INR 1.2 11/15/18 14:00 APTT 30 SECONDS (21-34) 11/15/18 14:00 - Constitutional Appears: Well, Non-toxic - Head Exam Head Exam: NORMAL INSPECTION - Eye Exam Eye Exam: Normal appearance Pupil Exam: NORMAL ACCOMODATION - ENT Exam ENT Exam: Mucous Membranes Moist - Neck Exam Neck Exam: Full ROM - Respiratory Exam Respiratory Exam: NORMAL BREATHING PATTERN - Cardiovascular Exam Cardiovascular Exam: REGULAR RHYTHM - GI/Abdominal Exam GI & Abdominal Exam: Tenderness Additional comments: dressing intact - Rectal Exam Rectal Exam: Deferred - Exam Exam: NORMAL INSPECTION - Extremities Exam Extremities Exam: Full ROM, Normal Inspection - Neurological Exam Neurological Exam: Awake, Normal Gait, Oriented x3 - Psychiatric Exam Psychiatric exam: Normal Affect - Skin Skin Exam: Normal Color Assessment and Plan - Assessment and Plan (Free Text) Assessment: abdominal wall abcess need more cleaning in or will be don today as per pt Plan: or
[2018-11-17] MEDS ORDERED: Midazolam 2 MG/2 ML VIAL ONE (11:39)
[2018-11-17] MEDS ORDERED: Propofol 10 mg/ml Inj (20 ML) ONE (11:39)
--- NOTE | 2018-11-17 12:02 | PCM.SURG1 ---
Surgeon's Initial Post Op Note - Surgeon's Notes Surgeon: Dr. Myers Semiautomatic Taper Operator: Dr. Leonardo Type of Anesthesia: IV Sedation Pre-Operative Diagnosis: left abdominal wall abscess Operative Findings: see operative note Post-Operative Diagnosis: same Operation Performed: incision and drainage of left abdominal wall abscess Specimen/Specimens Removed: none Estimated Blood Loss: EBL {In ML}: 18 Blood Products Given: N/A Drains Used: No Drains Post-Op Condition: Good Date of Surgery/Procedure: 11/17/18 Time of Surgery/Procedure: 12:02
[2018-11-17] MEDS ORDERED: Morphine 4 MG/ML VIAL IVP PRN (12:15)
[2018-11-17 12:52] VITALS: RESP 20
[2018-11-17] MEDS: Lactated Ringer's 1,000 ML IV SCH (13:11)
--- NOTE | 2018-11-17 14:37 | CP.PCM.PN ---
Subjective - Date & Time of Evaluation Date of Evaluation: 11/17/18 Time of Evaluation: 09:00 - Subjective Subjective: awake alert afeb s/p I and D Objective - Vital Signs/Intake and Output Vital Signs (last 24 hours): Temp Pulse Resp BP Pulse Ox 98.1 F 80 20 106/78 99 11/17/18 12:52 11/17/18 12:52 11/17/18 12:52 11/17/18 12:52 11/17/18 12:52 Intake and Output: 11/17/18 11/17/18 06:59 18:59 Intake Total 650 800 Balance 650 800 - Medications Medications: Current Medications Acetaminophen (Tylenol 325mg Tab) 650 mg PO Q6 PRN PRN Reason: Fever >100.4 F Last Admin: 11/15/18 02:00 Dose: 650 mg Albuterol (Ventolin Hfa 90 Mcg/Actuation (8 G)) 1 puff IH QID PRN PRN Reason: Cough Enoxaparin Sodium (Lovenox) 40 mg SC DAILY NAH[facility] Last Admin: 11/17/18 09:45 Dose: Not Given Vancomycin/Sodium Chloride (Vancomycin 1 Gm/Ns 200 Ml) 1 gm in 200 mls @ 166.6 mls/hr IVPB Q12H NAHID; Protocol Stop: 11/20/18 20:31 Last Admin: 11/17/18 09:45 Dose: 166.6 mls/hr Piperacillin Sod/Tazobactam (Sod 3.375 gm/ Sodium Chloride) 100 mls @ 100 mls/hr IVPB Q8H NAHID; Protocol Last Admin: 11/17/18 08:19 Dose: 100 mls/hr Lactated Ringer's (Lactated Ringer's) 1,000 mls @ 100 mls/hr IV .Q10H NAHID Last Admin: 11/17/18 13:11 Dose: Not Given Influenza Virus Vaccine (Flucelvax Quad 4307-6690 Syr) 60 mcg IM .ONCE ONE Stop: 11/19/18 10:01 Oxycodone/Acetaminophen (Percocet 5/325 Mg Tab) 1 tab PO Q6H PRN PRN Reason: Pain, severe (8-10) Stop: 11/19/18 08:30 Last Admin: 11/17/18 13:19 Dose: 1 tab Pneumococcal Polyvalent Vaccine (Pneumovax 23 Vaccine) 0.5 ml IM .ONCE ONE Stop: 11/19/18 10:01 - Labs Labs: 11/17/18 07:34 11/17/18 06:35 PT 13.2 SECONDS (9.7-12.2) H 11/15/18 14:00 INR 1.2 11/15/18 14:00 APTT 30 SECONDS (21-34) 11/15/18 14:00 - Constitutional Appears: Non-toxic, Chronically Ill - Head Exam Head Exam: NORMOCEPHALIC - Eye Exam Eye Exam: absent: Scleral icterus - ENT Exam ENT Exam: Mucous Membranes Dry - Neck Exam Neck Exam: absent: Lymphadenopathy - Respiratory Exam Respiratory Exam: Decreased Breath Sounds - Cardiovascular Exam Cardiovascular Exam: REGULAR RHYTHM - GI/Abdominal Exam GI & Abdominal Exam: Distended - Rectal Exam Rectal Exam: Deferred - Exam Exam: NORMAL INSPECTION - Back Exam Back Exam: absent: CVA tenderness (L), CVA tenderness (R) - Neurological Exam Neurological Exam: Alert, Awake, CN II-XII Intact, Oriented x3 - Psychiatric Exam Psychiatric exam: Normal Mood Assessment and Plan (1) Cellulitis, abdominal wall Status: Acute (2) Abscess, abdomen Status: Acute - Assessment and Plan (Free Text) Assessment: wound + for MSSA ok to d/c Vanco possible D/C on Keflex for 7-10 days PO
[2018-11-17] MEDS: ceFAZolin 1 GM in Sodium Chloride 0.9% 100 ML IVPB SCH (15:21)
[2018-11-18] MEDS: ceFAZolin 1 GM in Sodium Chloride 0.9% 100 ML IVPB SCH ×2 (00:09→07:03)
[2018-11-18 00:15] VITALS: O2SAT 95
[2018-11-18] MEDS: Lactated Ringer's 1,000 ML IV SCH (00:19)
[2018-11-18] MEDS: Oxycodone/Acetaminophen 5/325 mg Tab PO PRN ×2 (03:37→10:16)
--- NOTE | 2018-11-18 08:21 | CP.PCM.PN ---
Subjective - Date & Time of Evaluation Date of Evaluation: 11/18/18 Time of Evaluation: 08:17 - Subjective Subjective: Surgery: Dr. Myers Pt seen and examined. No acute overnight events. Pt states she feels a lot better. Her pain is well controlled. She admits to tolerating her diet and denies nausea/vomiting. Having BMs, denies fevers/chills. Objective - Vital Signs/Intake and Output Vital Signs (last 24 hours): Temp Pulse Resp BP Pulse Ox 98 F 63 20 123/77 95 11/18/18 00:00 11/18/18 00:00 11/18/18 00:00 11/18/18 00:00 11/18/18 00:00 Intake and Output: 11/18/18 11/18/18 06:59 18:59 Intake Total 700 1040 Output Total 500 Balance 200 1040 - Medications Medications: Current Medications Acetaminophen (Tylenol 325mg Tab) 650 mg PO Q6 PRN PRN Reason: Fever >100.4 F Last Admin: 11/15/18 02:00 Dose: 650 mg Albuterol (Ventolin Hfa 90 Mcg/Actuation (8 G)) 1 puff IH QID PRN PRN Reason: Cough Enoxaparin Sodium (Lovenox) 40 mg SC DAILY [facility] Last Admin: 11/17/18 09:45 Dose: Not Given Cefazolin Sodium 1 gm/ Sodium (Chloride) 100 mls @ 100 mls/hr IVPB Q8H NAHID; Pro tocol Last Admin: 11/18/18 07:03 Dose: 100 mls/hr Influenza Virus Vaccine (Flucelvax Quad 9861-4757 Syr) 60 mcg IM .ONCE ONE Stop: 11/19/18 10:01 Oxycodone/Acetaminophen (Percocet 5/325 Mg Tab) 1 tab PO Q6H PRN PRN Reason: Pain, severe (8-10) Stop: 11/19/18 08:30 Last Admin: 11/18/18 03:37 Dose: 1 tab Pneumococcal Polyvalent Vaccine (Pneumovax 23 Vaccine) 0.5 ml IM .ONCE ONE Stop: 11/19/18 10:01 - Labs Labs: 11/17/18 07:34 11/17/18 06:35 PT 13.2 SECONDS (9.7-12.2) H 11/15/18 14:00 INR 1.2 11/15/18 14:00 APTT 30 SECONDS (21-34) 11/15/18 14:00 - Constitutional Appears: Well, No Acute Distress - Head Exam Head Exam: ATRAUMATIC, NORMOCEPHALIC - Eye Exam Eye Exam: Normal appearance - ENT Exam ENT Exam: Mucous Membranes Moist - Respiratory Exam Respiratory Exam: NORMAL BREATHING PATTERN - Cardiovascular Exam Cardiovascular Exam: RRR - GI/Abdominal Exam GI & Abdominal Exam: Soft. absent: Distended, Guarding, Rebound Additional comments: erythema around abscess site much improved, packing changed, no purulent drainage noted - Neurological Exam Neurological Exam: Alert, Awake, Oriented x3 - Skin Skin Exam: Dry, Intact, Warm Assessment and Plan - Assessment and Plan (Free Text) Assessment: 58F with abdominal wall abscess s/p I&D; POD#1 Plan: - ok to DC from surgical standpoint with PO ABX - Packing can be removed in the office by Dr. Myers - f/u in 2-3 days, call for appointment - d/w Dr. Louis Talamantes
[2018-11-18] MEDS: Enoxaparin 40 mg Syringe SC SCH (10:20)
--- NOTE | 2018-11-18 12:21 | CP.PCM.PN ---
Subjective - Date & Time of Evaluation Date of Evaluation: 11/18/18 Time of Evaluation: 07:00 - Subjective Subjective: s/p I and D MSSA + Objective - Vital Signs/Intake and Output Vital Signs (last 24 hours): Temp Pulse Resp BP Pulse Ox 98 F 63 20 123/77 95 11/18/18 00:00 11/18/18 00:00 11/18/18 00:00 11/18/18 00:00 11/18/18 00:00 Intake and Output: 11/18/18 11/18/18 06:59 18:59 Intake Total 700 1040 Output Total 500 Balance 200 1040 - Medications Medications: Current Medications Acetaminophen (Tylenol 325mg Tab) 650 mg PO Q6 PRN PRN Reason: Fever >100.4 F Last Admin: 11/15/18 02:00 Dose: 650 mg Albuterol (Ventolin Hfa 90 Mcg/Actuation (8 G)) 1 puff IH QID PRN PRN Reason: Cough Enoxaparin Sodium (Lovenox) 40 mg SC DAILY [facility] Last Admin: 11/18/18 10:20 Dose: Not Given Cefazolin Sodium 1 gm/ Sodium (Chloride) 100 mls @ 100 mls/hr IVPB Q8H NAHID; Protocol Last Admin: 11/18/18 07:03 Dose: 100 mls/hr Influenza Virus Vaccine (Flucelvax Quad [id number] Syr) 60 mcg IM .ONCE ONE Stop: 11/19/18 10:01 Oxycodone/Acetaminophen (Percocet 5/325 Mg Tab) 1 tab PO Q6H PRN PRN Reason: Pain, severe (8-10) Stop: 11/19/18 08:30 Last Admin: 11/18/18 10:16 Dose: 1 tab Pneumococcal Polyvalent Vaccine (Pneumovax 23 Vaccine) 0.5 ml IM .ONCE ONE Stop: 11/19/18 10:01 - Labs Labs: 11/17/18 07:34 11/17/18 06:35 PT 13.2 SECONDS (9.7-12.2) H 11/15/18 14:00 INR 1.2 11/15/18 14:00 APTT 30 SECONDS (21-34) 11/15/18 14:00 - Constitutional Appears: Non-toxic, Chronically Ill - Head Exam Head Exam: NORMOCEPHALIC - Eye Exam Eye Exam: absent: Scleral icterus - ENT Exam ENT Exam: Mucous Membranes Dry - Neck Exam Neck Exam: absent: Lymphadenopathy - Respiratory Exam Respiratory Exam: Decreased Breath Sounds - Cardiovascular Exam Cardiovascular Exam: REGULAR RHYTHM - GI/Abdominal Exam GI & Abdominal Exam: Distended, Soft Assessment and Plan (1) Cellulitis, abdominal wall Status: Acute (2) Abscess, abdomen Status: Acute - Assessment and Plan (Free Text) Assessment: d/c on PO rx follow up aman Hernandez
--- NOTE | 2018-11-18 12:51 | CP.PCM.PN ---
Subjective - Date & Time of Evaluation Date of Evaluation: 11/18/18 Time of Evaluation: 12:50 - Subjective Subjective: PATIENT SEEN AND EXAMINED AT THE BEDSIDE Objective - Vital Signs/Intake and Output Vital Signs (last 24 hours): Temp Pulse Resp BP Pulse Ox 98 F 63 20 123/77 95 11/18/18 00:00 11/18/18 00:00 11/18/18 00:00 11/18/18 00:00 11/18/18 00:00 Intake and Output: 11/18/18 11/18/18 06:59 18:59 Intake Total 700 1040 Output Total 500 Balance 200 1040 - Medications Medications: Current Medications Acetaminophen (Tylenol 325mg Tab) 650 mg PO Q6 PRN PRN Reason: Fever >100.4 F Last Admin: 11/15/18 02:00 Dose: 650 mg Albuterol (Ventolin Hfa 90 Mcg/Actuation (8 G)) 1 puff IH QID PRN PRN Reason: Cough Enoxaparin Sodium (Lovenox) 40 mg SC DAILY [facility] Last Admin: 11/18/18 10:20 Dose: Not Given Cefazolin Sodium 1 gm/ Sodium (Chloride) 100 mls @ 100 mls/hr IVPB Q8H NAHID; Protocol Last Admin: 11/18/18 07:03 Dose: 100 mls/hr Influenza Virus Vaccine (Flucelvax Quad [id number] Syr) 60 mcg IM .ONCE ONE Stop: 11/18/18 13:01 Oxycodone/Acetaminophen (Percocet 5/325 Mg Tab) 1 tab PO Q6H PRN PRN Reason: Pain, severe (8-10) Stop: 11/19/18 08:30 Last Admin: 11/18/18 10:16 Dose: 1 tab Pneumococcal Polyvalent Vaccine (Pneumovax 23 Vaccine) 0.5 ml IM .ONCE ONE Stop: 11/18/18 13:01 - Labs Labs: 11/17/18 07:34 11/17/18 06:35 PT 13.2 SECONDS (9.7-12.2) H 11/15/18 14:00 INR 1.2 11/15/18 14:00 APTT 30 SECONDS (21-34) 11/15/18 14:00 Assessment and Plan - Assessment and Plan (Free Text) Assessment: FOLLOW UP WITH DR BUSTAMANTE IN HER OFFICE -----CALL FOR APPOINTMENT FOLLOW UP WITH DR LOZANO IN HIS OFFICE IN 2-3 DAYS ----CALL FOR APPOINTMENT ADDRESS THE REMOVAL OF THE PACKING AT YOUR VISIT CONTINUE HOME MEDICATION NEW PRESCRIPTION GIVEN FLORASTOR 250 MG PO BID KEFLEX 500 MG PO TID FOR 7 DAYS ACTIVITY TOLERATED CALL DR BUSTAMANTE OR GO TO THE EMERGENCY ROOM IF SYMPTOM RETURN OR WORSENING
[2018-11-18] MEDS ORDERED: Pneumococcal 23-Valent Vaccine IM ONE (13:00)
[2018-11-18] MEDS ORDERED: Influenza Vaccine 60 mcg/0.5 mL SYR (4YR UP) IM ONE (13:00)
[2018-11-18 13:35] VITALS: BP 129/87; PULSE 64; TEMP 7.9
--- NOTE | 2018-11-18 18:26 | CP.PCM.PN ---
Subjective - Date & Time of Evaluation Date of Evaluation: 11/18/18 - Subjective Subjective: pt seen by surgean and cleared for disch today Objective - Vital Signs/Intake and Output Vital Signs (last 24 hours): Temp Pulse Resp BP Pulse Ox 7.9 F L 64 20 129/87 95 11/18/18 08:00 11/18/18 08:00 11/18/18 08:00 11/18/18 08:00 11/18/18 08:00 Intake and Output: 11/18/18 11/18/18 06:59 18:59 Intake Total 700 1040 Output Total 500 Balance 200 1040 - Labs Labs: 11/17/18 07:34 11/17/18 06:35 PT 13.2 SECONDS (9.7-12.2) H 11/15/18 14:00 INR 1.2 11/15/18 14:00 APTT 30 SECONDS (21-34) 11/15/18 14:00 - Constitutional Appears: Non-toxic - Head Exam Head Exam: ATRAUMATIC - Eye Exam Eye Exam: Normal appearance - ENT Exam ENT Exam: Mucous Membranes Moist - Neck Exam Neck Exam: Full ROM - Respiratory Exam Respiratory Exam: Clear to Ausculation Bilateral - Cardiovascular Exam Cardiovascular Exam: REGULAR RHYTHM - GI/Abdominal Exam GI & Abdominal Exam: Normal Bowel Sounds Additional comments: dressing intact - Rectal Exam Rectal Exam: Deferred - Extremities Exam Extremities Exam: Normal Inspection - Back Exam Back Exam: NORMAL INSPECTION - Neurological Exam Neurological Exam: Alert, Awake, Normal Gait, Oriented x3 - Psychiatric Exam Psychiatric exam: Normal Mood - Skin Skin Exam: Normal Color Assessment and Plan - Assessment and Plan (Free Text) Assessment: s/p abdominal wound abcess inscion and drainage Plan: cont as per rx and f/u in office
== END 2018-11-18 13:46 | disposition home or self-care (01) | DRG 278 ==
LOC: C.ER 22:06 → C.9E 11-14 07:11 → C.3T 11-14 18:08 → OBSVTOIN 11-16 11:40
PROVIDERS: ADMIT Internal Medicine; ATTEND Internal Medicine
PROC: 0H97XZZ Drainage of Abdomen Skin, External Approach (ICD-10-PCS; principal; 2018-11-15)
DX: L02.211 Cutaneous abscess of abdominal wall (principal); F17.200 Nicotine dependence, unspecified, uncomplicated; L03.311 Cellulitis of abdominal wall; L30.9 Dermatitis, unspecified

== ENCOUNTER 2019-01-15 09:10 | Emergency (ER) | payer OTHER ==
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
--- NOTE | 2019-01-15 11:53 | CT ---
Date of service: 01/15/2019 CT cervical spine without IV contrast Indication: TRAUMA Comparison: None available Technique: Axial computed tomography images were obtained of the cervical spine without the use of intravenous contrast. Coronal and sagittal reformatted images were created and reviewed. This CT exam was performed using 1 or more of the following dose reduction techniques: Automated exposure control, adjustment of the MAA and/or kV according to patient size, and/or use of iterative reconstruction technique. Radiation dose: Total exam DLP = 460.4 mGy-cm. Findings: Osseous demineralization limits evaluation for acute fracture lines. Multilevel degenerative changes including osteophyte formation and intervertebral disc space narrowing. Facet hypertrophy. No acute displaced fracture or subluxation identified. The prevertebral soft tissues and spinolaminar lines appear intact. The lateral masses are preserved. The dens tip is intact. There is proper alignment of the lateral masses of C1 with the C2 vertebral body. Included portions of the thyroid gland demonstrates bilateral hypodense nodules, the largest on the left measuring approximately 1.9 cm. Included portions of lung apices demonstrate biapical scarring/atelectasis and emphysematous changes. Impression: Osseous demineralization. Degenerative changes. No evidence of acute fracture or subluxation. Included portions of the thyroid gland demonstrates bilateral hypodense nodules, the largest on the left measuring approximately 1.9 cm. Outpatient thyroid ultrasound may be considered for further evaluation if indicated. Included portions of lung apices demonstrate biapical scarring/atelectasis and emphysematous changes.
[2019-01-15 12:28] VITALS: BP 149/87; PULSE 88; RESP 20; TEMP 98; O2SAT 99
== END 2019-01-15 12:28 | disposition home or self-care (01) ==
LOC: C.ER 09:10
DX: S13.4XXA Sprain of ligaments of cervical spine, initial encounter (principal); V49.50XA Passenger injured in collision with unspecified motor vehicles in traffic accident, initial encounter; Y92.410 Unspecified street and highway as the place of occurrence of the external cause